=== PATIENT | male | born 1975 | race Two or more races ===

== ENCOUNTER 2023-05-22 21:01 | Emergency (ER) | payer OTHER ==
[~2023-05-22] VITALS: Ht 167.6 cm; Wt 74.8 kg
[~2023-05-22 21:01] MED LIST: CEPHALEXIN500 M1 PO
[2023-05-22] MEDS ORDERED: MUPIROCIN15 GM TOP (21:53)
[2023-05-22] MEDS ORDERED: DUI500 PO (21:53)
== END 2023-05-22 22:00 | disposition home or self-care (01) ==
LOC: ER 21:01
DX: S61.421A Laceration with foreign body of right hand, initial encounter (principal); W25.XXXA Contact with sharp glass, initial encounter; W45.8XXA Other foreign body or object entering through skin, initial encounter; Y93.89 Activity, other specified; Y92.010 Kitchen of single-family (private) house as the place of occurrence of the external cause

== ENCOUNTER 2025-05-30 06:00 | Day surgery (SDC) | payer OTHER ==
[2025-05-21 11:46] LABS: BASO % 0.7 % (0.1-1.2); EOS # 0.11 (0.04-0.54); EOS % 1.6 % (0.7-7.0); LYMPH # 2.27 (1.18-3.74); LYMPH % 32.3 % (19.3-53.1); MEAN PLATELET VOLUME 10.50 fl (9.4-12.4); MONO # 0.68 (0.24-0.82); MONO % 9.7 % (4.7-12.5); NEUT # 3.90 (1.56-6.13); NEUT % 55.4 % (34.0-71.1); RED CELL DISTRIBUTION WIDTH 12.1 % (11.6-14.4)
[2025-05-21 12:08] LABS: URINE APPEARANCE Clear; URINE BILIRRUBIN Negative (NEGATIVE); URINE BLOOD Negative; URINE COLOR Yellow; URINE GLUCOSE Negative (NEGATIVE); URINE KETONE Trace (NEGATIVE); URINE LEUKOCYTE Negative; URINE NITRATE Negative; URINE PROTEIN Negative (NEGATIVE); URINE UROBILINOGEN 0.2 E.U./dl
[2025-05-21 12:11] LABS: INR 0.96
[2025-05-21 12:12] VITALS: BP 145/92
[2025-05-21 12:12] LABS: URINE RBC 2.0 uL (0.0-20.8)
[2025-05-21 12:14] LABS: URINE BACTERIA 1.1 uL (0.0-1933); URINE CAST 0.00 uL (0.0-1.40); URINE EPITHELIAL CELLS 0.1 uL (0.0-38.8); URINE WBC 0.7 uL (0.0-23.2)
[2025-05-21 13:10] LABS: ALT/SGPT 43.0 U/L (12-78); AST/SGOT 22.0 U/L (15-37); BILIRUBIN TOTAL 0.44 mg/dL (0.3-1.2); BUN CREA RATIO 11.0 (7.0-25.0); CREATININE SERUM 0.72 mg/dL (0.70-1.30); GFR 115.55; GLOBULINA 3.8 G/DL (2.4-3.5); GLUCOSE FASTING 93.0 mg/dL (65-100); OSMOLALITY SERUM 276.0 MOSM/KG (275-295)
[~2025-05-30] VITALS: Ht 172.7 cm; Wt 74.8 kg
[~2025-05-30 06:00] MED LIST changes: +DUI500 PO; +MUPIROCIN15 GM TOP
[2025-05-30] MEDS ORDERED: CEFTRIAXONE SODIUM 2,000 MG VIAL IV ONE (08:45)
[2025-05-30] MEDS ORDERED: LIDOCAINE HCL 1%/EPINEPHRINE 20ML VIAL IJ ONE (08:45)
[2025-05-30] MEDS ORDERED: DIBUCAINE 15 GM OINT..GM. TUBE RECTAL ONE (08:45)
[2025-05-30] MEDS ORDERED: METRONIDAZOLE/SODIUM CHLORIDE 500 MG/100 ML PIGGYBACK IV ONE (08:45)
[2025-05-30] MEDS ORDERED: BUPIVACAINE HCL 30 ML VIAL IJ ONE (08:45)
[2025-05-30] MEDS ORDERED: HEMOSTATIC MATRIX 1 KIT KIT TOP ONE (08:45)
[2025-05-30] MEDS ORDERED: TAMSULOSIN HCL 0.4 MG CAP PO ONE (09:45)
[2025-05-30] MEDS ORDERED: OXYCODONE HCL5 MG PO (09:53)
[2025-05-30] MEDS ORDERED: MORPHINE SULFATE 4 MG/ML VIAL IV ONE (16:35)
== END 2025-05-30 17:35 | disposition home or self-care (01) ==
LOC: CIR.AMB 06:00
PROVIDERS: ATTEND Surgery
DX: K64.2 Third degree hemorrhoids (principal); K64.4 Residual hemorrhoidal skin tags; K62.5 Hemorrhage of anus and rectum